=== PATIENT | female | born 1930 | race Caucasian/White ===

== ENCOUNTER 2016-09-02 13:55 | Emergency (ER) | payer MEDICARE, BC ==
[~2016-09-02 13:55] MED LIST: ALPRAZOLAM PO; AMIODARONE PO; CARBIDOPA-LEVO1 EACH PO; COUMADIN PO; FISH OIL 1,0001 CAP PO; FLAX SEED OIL1000 M1; FLAX SEED OIL1000 MG PO; LOPRESSOR PO; PRADAXA150 MG PO; TOPROL XL PO; TRIAMTERENE/HCTZ PO; ZOCOR PO
== END 2016-09-02 14:06 | disposition home or self-care (01) ==
LOC: SED 13:55
DX: M79.81 Nontraumatic hematoma of soft tissue (principal); Z79.899 Other long term (current) drug therapy
CPT/HCPCS: 99282